=== PATIENT | female | born 1980 | race Caucasian/White ===

== ENCOUNTER 2018-01-03 17:28 | Emergency (ER) | payer MEDICAID ==
[2018-01-03 17:29] VITALS: BMI 29.6
[2018-01-03 18:11] VITALS: RESP 18
--- NOTE | 2018-01-03 19:15 | ED PDOC ---
Arrival/HPI - General Chief Complaint: Female Genitourinary Time Seen by Provider: 01/03/18 18:59 Historian: Patient - History of Present Illness Narrative History of Present Illness (Text): 01/03/18 19:00 Ml Dunn is a 20-week 37 year old female, , who presents to the emergency department complaining of clear liquid discharge yesterday and today. Patient notes associated intermittent diffuse lower back pain for about 3 days. Patient denies any abdominal pain, vaginal bleeding, urinary symptoms, fever, or any other complaints at this time. [employer] ASSOCIATE: Dr. Rebecca Bazan Time/Duration: < week Symptom Course: Intermittent Activities at Onset: Light Context: Home Past Medical History - Provider Review Nursing Documentation Reviewed: Yes - Past History Past History: No Previous - Infectious Disease Hx of Infectious Diseases: None - Tetanus Immunization Tetanus Immunization: Up to Date - Reproductive Menopause: No - Psychiatric Hx Substance Use: No - Anesthesia Hx Anesthesia: No Family/Social History - Physician Review Nursing Documentation Reviewed: Yes Family/Social History: No Known Family HX Smoking Status: Never Smoked Hx Alcohol Use: No Hx Substance Use: No Allergies/Home Meds Allergies/Adverse Reactions: Allergies No Known Allergies Allergy (Verified 05/02/16 16:38) Home Medications: Home Meds Medication Instructions Recorded Confirmed No Known Home Med 01/03/18 01/03/18 Review of Systems - Physician Review All systems were reviewed & negative as marked: Yes - Review of Systems Constitutional: absent: Fevers, Night Sweats Eyes: absent: Vision Changes, Eye Pain ENT: absent: Hearing Changes Respiratory: absent: SOB, Cough Cardiovascular: absent: Chest Pain Gastrointestinal: absent: Abdominal Pain Genitourinary Female: Vaginal Discharge. absent: Urine Output Changes, Vaginal Bleeding Musculoskeletal: absent: Arthralgias, Back Pain Skin: absent: Rash, Pruritis Neurological: absent: Headache Endocrine: absent: Diaphoresis Hemo/Lymphatic: absent: Adenopathy Psychiatric: absent: Anxiety, Depression Physical Exam Vital Signs Reviewed: Yes Vital Signs Temp Pulse Resp BP Pulse Ox 01/03/18 18:06 99.4 F 88 18 108/88 99 Temperature: Afebrile Blood Pressure: Normal Pulse: Regular Respiratory Rate: Normal Appearance: Positive for: Well-Appearing, Non-Toxic, Comfortable Pain Distress: None Mental Status: Positive for: Alert and Oriented X 3 - Systems Exam Head: Present: Atraumatic, Normocephalic Pupils: Present: PERRL Extroacular Muscles: Present: EOMI Conjunctiva: Present: Normal Mouth: Present: Moist Mucous Membranes Neck: Present: Normal Range of Motion Respiratory/Chest: Present: Clear to Auscultation, Good Air Exchange. No: Respiratory Distress, Accessory Muscle Use Cardiovascular: Present: Regular Rate and Rhythm, Normal S1, S2. No: Murmurs Abdomen: Present: Normal Bowel Sounds, Other (). No: Tenderness Genitourinary/Pelvic Exam: Present: Normal External Genitalia, Vaginal Discharge (white creamy discharge). No: Vaginal Bleeding, Odor Back: Present: Normal Inspection Upper Extremity: Present: Normal Inspection. No: Cyanosis, Edema Lower Extremity: Present: Normal Inspection. No: Edema Neurological: Present: GCS=15, CN II-XII Intact, Speech Normal Skin: Present: Warm, Dry, Normal Color. No: Rashes Psychiatric: Present: Alert, Oriented x 3, Normal Insight, Normal Concentration Medical Decision Making ED Course and Treatment: 01/03/18 19:16 Impression: 37 year old female complaining of clear liquid discharge yesterday and today. Differential Diagnosis included but are not limited to: Threatened vs. demise Plan: -- Age Ultrasound -- Type and Screen -- Urinalysis -- Labs -- Reassess and disposition Progress Notes: 01/03/18 22:44 US After First Trimester, Transabdominal FINDINGS: Fetus: There is a single living intrauterine gestation in cephalic presentation. There is a heart rate of 150 beats per minute Placenta: Placenta is anterior. There is no previa. Amniotic fluid: Amnionic fluid index measures 15.12 cm. Anatomy: Evaluation of anatomy is limited by early gestational age. There is a four-chamber heart and three-vessel cord. Fluid is seen in the stomach. There are kidneys in the flanks. BIOMETRICS Gestational age by US: 20 weeks 2 days EFW: 344 g BPD: 4.76 cm, 20 weeks 3 days HC: 17.8 by cm, 20 weeks 2 days AC: 15.04 cm, 20 weeks 2 days FL: 3.3 cm, 20 weeks 2 days MATERNAL: Ovaries: Right ovary measures 3.3 x 2.3 x 2.5 cm. Left ovary measures approximately 2.5 x 1.4 x 1.8 cm. TheThere is flow in both ovaries on Doppler imaging. The Cervix: Cervix measures approximately 4.5 cm on transabdominal imaging. IMPRESSION: 20 week 2 day single cephalic fetus, estimated date of delivery 05/21; normal amniotic fluid index; 4.5 cm cervix Dictated and Authenticated by: Mahogany Dale MD 01/03/2018 10:35 PM Eastern Time ([place] & [place]) 01/03/18 23:00 Case was discussed with Dr. Hough who is covering for OBGYN. She agrees that ultrasound reports good 20 week IUP with normal amniotic fluid index and good bhcg quant that patient can be discharged home with f/u with her OBGYN Dr. Bazan 01/03/18 23:02 I discussed the case with Dr. Bazan, OBGYN of patient, who I reviewed the Ultrasound with. She recommends her follow up with her on Wednesday. She said not to give any antifungals at this time until she follows up with her. Case signed out to Dr. Klein to f/u UA and disposition. - Lab Interpretations Lab Results: 01/03/18 20:50 01/03/18 20:50 Lab Results 01/03/18 22:58: Urine Color Yellow, Urine Appearance Clear, Urine pH 6.0, Ur Specific [place] >= 1.030, Urine Protein Negative, Urine Glucose (UA) Negative, Urine Ketones Trace H, Urine Blood Negative, Urine Nitrate Negative, Urine Bilirubin Negative, Urine Urobilinogen 0.2, Ur Leukocyte Esterase Negative, Urine HCG, Qual Negative 01/03/18 20:50: Blood Type B POSITIVE, Antibody Screen Negative, BBK History Checked Patient has bt 01/03/18 20:50: Beta HCG, Quant 9861.30 H 01/03/18 20:50: Sodium 137, Potassium 3.6, Chloride 105, Carbon Dioxide 21, Anion Gap 14, BUN 13, Creatinine 0.6 L, Est GFR ( Amer) > 60, Est GFR ( Non-Af Amer) > 60, Random Glucose 97, Calcium 9.7, Total Bilirubin 0.5, AST 15, ALT 23, Alkaline Phosphatase 37 L, Total Protein 6.9, Albumin 3.7, Globulin 3.2 , Albumin/Globulin Ratio 1.1 01/03/18 20:50: PT 12.0, INR 1.05, APTT 26.9 01/03/18 20:50: WBC 7.8 D, RBC 3.67, Hgb 11.1 L, Hct 33.0 L, MCV 89.9, MCH 30.2 , MCHC 33.6, RDW 13.3, Plt Count 221, MPV 9.7, Gran % 64.9, Lymph % (Auto) 28.7 , Hendricks % (Auto) 5.6, Eos % (Auto) 0.5 L, Baso % (Auto) 0.3, Gran # 5.07, Lymph # (Auto) 2.2, Hendricks # (Auto) 0.4, Eos # (Auto) 0.0, Baso # (Auto) 0.02 I have reviewed the lab results: Yes - RAD Interpretation Radiology Orders: 01/03/18 19:09 AGE [US] Stat - Scribe Statement The provider has reviewed the documentation as recorded by the Farhat Carter Provider Scribe Attestation: All medical record entries made by the Scribe were at my direction and personally dictated by me. I have reviewed the chart and agree that the record accurately reflects my personal performance of the history, physical exam, medical decision making, and the department course for this patient. I have also personally directed, reviewed, and agree with the discharge instructions and disposition. Disposition/Present on Arrival - Present on Arrival Any Indicators Present on Arrival: No History of DVT/PE: No History of Uncontrolled Diabetes: No Urinary Catheter: No History of Decub. Ulcer: No History Surgical Site Infection Following: None - Disposition Have Diagnosis and Disposition been Completed?: Yes Diagnosis: Threatened Disposition: HOME/ ROUTINE Disposition Time: 23:05 Patient Problems: Current Active Problems Problem Status Onset Threatened Acute Condition: IMPROVED Discharge Instructions (ExitCare): Threatened Miscarriage Additional Instructions: Ray, thank you for letting us take care of you today. Your provider was Dr. Kim. You were treated for Threated . The emergency medical care you received today was directed at your acute symptoms. If you were prescribed any medication, please fill it and take as directed. It may take several days for your symptoms to resolve. Return to the Emergency Department if your symptoms worsen, do not improve, or if you have any other problems. Please contact your doctor or call one of the physicians/clinics you have been referred to that are listed on the Patient Visit Information form that is included in your discharge packet. Bring any paperwork you were given at discharge with you along with any medications you are taking to your follow up visit. Our treatment cannot replace ongoing medical care by a primary care provider (PCP) outside of the emergency department. Thank you for allowing the [facility] team to be part of your care today. If you had an X-Ray or CT scan: A Radiologist will review the ED reading if any change in treatment is needed we will contact you. If you had a blood, urine, or wound culture: It will take several days for the results, if any change in treatment is needed we will contact you. If you had an STI test: It will take 48 hours for the results. Please call after 1 week if you have not heard back. Referrals: Gumaro Garcia MD [Primary Care Provider] - Follow up with primary Forms: [employer] (Yi)
[2018-01-03 21:17] LABS: BASO # 0.02 K/mm3 (0.0-2.0); BASO % 0.3 % (0.0-3.0); EOS % 0.5 % (1.5-5.0); GRAN # 5.07 (1.4-6.5); GRAN % 64.9 % (50.0-68.0); HEMOGLOBIN 11.1 g/dL (12.0-16.0); LYMPH # 2.2 (1.2-3.4); LYMPH % 28.7 % (22.0-35.0); MEAN CELL VOLUME 89.9 fl (80.0-105.0); MEAN CORPUSCULAR HEMOGLOBIN 30.2 pg (25.0-35.0); MEAN CORPUSCULAR HGB CONC 33.6 g/dl (31.0-37.0); MEAN PLATELET VOLUME 9.7 fl (7.0-11.0); MONO # 0.4 (0.1-0.6); MONO % 5.6 % (1.0-6.0); RBC 3.67 10^6/uL (3.5-6.1); RED CELL DISTRIBUTION WIDTH 13.3 % (11.5-14.5); WHITE BLOOD COUNT 7.8 10^3/ul (4.5-11.0)
[2018-01-03 21:25] LABS: ALB/GLOB RATIO 1.1 (1.1-1.8); ALBUMIN 3.7 g/dL (3.0-4.8); ALT/SGPT 23 U/L (7-56); AST/SGOT 15 U/L (14-36); BLOOD UREA NITROGEN 13 mg/dL (7-21); CALCIUM 9.7 mg/dL (8.4-10.5); GFR AFRICAN-AMERICAN > 60; GFR NON-AFRICAN AMERICAN > 60
[2018-01-03 21:30] LABS: INR 1.05 (0.93-1.08); PARTIAL THROMBOPLASTIN TIME 26.9 Seconds (25.1-36.5)
--- NOTE | 2018-01-03 22:36 | US ---
EXAM: US After First Trimester, Transabdominal EXAM DATE/TIME: 01/03/2018 7:09 PM CLINICAL HISTORY: 37 years old, female; Signs and symptoms; Lmp or gestational age (in weeks): 08-14-2017; Other: Leaking; ; Additional info: demise vs miscarriage vs threated ab TECHNIQUE: Real-time transabdominal obstetrical ultrasound of the maternal pelvis and a second or third trimester with image documentation. COMPARISON: There are no prior studies for comparison. FINDINGS: Fetus: There is a single living intrauterine gestation in cephalic presentation. There is a heart rate of 150 beats per minute Placenta: Placenta is anterior. There is no previa. Amniotic fluid: Amnionic fluid index measures 15.12 cm. Anatomy: Evaluation of anatomy is limited by early gestational age. There is a four-chamber heart and three-vessel cord. Fluid is seen in the stomach. There are kidneys in the flanks. BIOMETRICS Gestational age by US: 20 weeks 2 days EFW: 344 g BPD: 4.76 cm, 20 weeks 3 days HC: 17.8 by cm, 20 weeks 2 days AC: 15.04 cm, 20 weeks 2 days FL: 3.3 cm, 20 weeks 2 days MATERNAL: Ovaries: Right ovary measures 3.3 x 2.3 x 2.5 cm. Left ovary measures approximately 2.5 x 1.4 x 1.8 cm. TheThere is flow in both ovaries on Doppler imaging. The Cervix: Cervix measures approximately 4.5 cm on transabdominal imaging. IMPRESSION: 20 week 2 day single cephalic fetus, estimated date of delivery 05/21/18; normal amniotic fluid index; 4.5 cm cervix
[2018-01-03 23:02] LABS: URINE BILIRUBIN NEGATIVE (NEGATIVE); URINE BLOOD NEGATIVE (NEGATIVE); URINE GLUCOSE (UA) NEGATIVE (NEGATIVE); URINE LEUKOCYTE ESTERASE NEGATIVE Leu/uL (NEGATIVE); URINE PROTEIN NEGATIVE mg/dL (<30 mg/dL); URINE UROBILINOGEN 0.2 E.U./dL (<1 E.U./dL)
[2018-01-03 23:05] LABS: HCG,QUALITATIVE URINE NEGATIVE (NEGATIVE); URINE APPEARANCE CLEAR (CLEAR); URINE COLOR YELLOW (YELLOW)
[2018-01-03 23:58] VITALS: BP 100/55; PULSE 70; TEMP 98.1; O2SAT 100
== END 2018-01-03 23:57 | disposition home or self-care (01) ==
LOC: ED 17:28
DX: O20.0 Threatened abortion (principal); Z3A.20 20 weeks gestation of pregnancy